=== PATIENT | female | born 1935 | race Caucasian/White ===

== ENCOUNTER → 2017-10-24 | Outpatient (CLI) | payer MEDICARE, BC ==
[2017-10-24 13:36] VITALS: BP 151/83; PULSE 70; RESP 14; TEMP 98.2; BMI 27.6
[2017-10-24 15:15] LABS: Basophils # (A) 0.1 k/uL (0-0.2); Basophils % (A) 1 %; Eosinophils # (A) 0.3 k/uL (0-0.7); Eosinophils % (A) 5 %; HCT 42.5 % (34.0-46.0); HGB 14.3 gm/dL (11.4-16.0); Lymphocytes % (A) 32 %; MCH 31.1 pg (25.0-35.0); MCHC 33.6 g/dL (31.0-37.0); MCV 92.6 fL (80.0-100.0); Mean Platelet Volume 7.2; Monocytes # (A) 0.4 k/uL (0-1.0); Monocytes % (A) 6 %; Neutrophils # (A) 3.3 k/uL (1.3-7.7); Neutrophils % (A) 53 %; Platelet Count 180 k/uL (150-450); RBC 4.59 m/uL (3.80-5.40); RDW 13.8 % (11.5-15.5); WBC 6.1 k/uL (3.8-10.6)
[2017-10-24 15:33] LABS: ALT 37 U/L (9-52); AST 34 U/L (14-36); Albumin 4.7 g/dL (3.5-5.0); Alkaline Phosphatase 73 U/L (38-126); Anion Gap 11 mmol/L; Blood Urea Nitrogen 19 mg/dL (7-17); Carbon Dioxide 32 mmol/L (22-30); Chloride 100 mmol/L (98-107); Glucose 96 mg/dL (74-99); Potassium 4.5 mmol/L (3.5-5.1); Sodium 143 mmol/L (137-145); Total Bilirubin 0.8 mg/dL (0.2-1.3); Total Protein 8.1 g/dL (6.3-8.2)
--- NOTE | 2017-10-24 15:34 | P.HPBAR ---
Bariatric H&P - History & Physicial H&P Date: 10/24/17 History & Physicial: Visit/CC: band fill (has gained 20 pounds since April 2017) Patient initial contact: Initial weight: 81.647 kg Initial weight in pounds: 180.00 Height: 5 ft 1 in Initial BMI: 34.0 Last weight: Current weight: 66.179 kg Current weight in pounds: 145.90 Current BMI: 27.6 [place] body weight (based on NIH guidelines): 47.627 kg Excess body weight loss: 45.4% The patient is a 82 year-old F who presents for Bariatric Assessment. Patient presents today for lab band follow up. Patient had her LAP-BAND previously emptied by Dr. [place]. She is requesting a fill of her band. 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 that is being watched so that a stent may be placed when necessary History of Any Multi-Drug Resistant Organisms: None Reported Past Surgical History: Bariatric Surgery, Cholecystectomy, Hernia Repair Additional Past Surgical History / Comment(s): Lap band placed 2010 (year ?) Past Anesthesia/Blood Transfusion Reactions: No Reported Reaction Additional Past Anesthesia/Blood Transfusion Reaction / Comm: No transfusion to date Smoking Status: Never smoker Past Alcohol Use History: None Reported Past Drug Use History: None Reported Surgical - Exam Vital Signs Temp Pulse Resp BP 98.2 F 70 14 151/83 10/24/17 13:11 10/24/17 13:11 10/24/17 13:11 10/24/17 13:11 - General well developed, no distress, moderate distress - Eyes PERRL - ENT normal pinna - Neck no masses - Respiratory normal expansion Results - Labs 10/24/17 14:20 Bariatric Assessment & Plan Plan: Patient LAP-BAND was adjusted. 3 mL added to her LAP-BAND. She will follow-up in 4 weeks. Bariatric Checklist Checklist: Plan: Checklist: EGD: 1. Hiatal hernia: 2. H. Pylori: HgbA1c: Vitamin D: Smoking: Never smoker Primary care physician referral: Rashard Denny) Psychiatry clearance: Cardiology clearance: Sleep study: Diet journal: VTE risk score: VTE risk level: Rehab needs at discharge:
[2017-10-25 02:09] LABS: Iron Saturation 31.46 (12.00-45.00)
[2017-10-25 02:19] LABS: Vitamin D 25 Hydroxy 18.2 ng/mL (30.0-100.0)
[2017-10-25 02:30] LABS: Folate, Serum 12.2 ng/mL
== END | disposition home or self-care (01) ==
LOC: BARWHC3 12:24
PROVIDERS: ATTEND Surgery
DX: Z48.815 Encounter for surgical aftercare following surgery on the digestive system (principal); E66.01 Morbid (severe) obesity due to excess calories; E44.0 Moderate protein-calorie malnutrition; E55.9 Vitamin D deficiency, unspecified; Z98.84 Bariatric surgery status; Z68.27 Body mass index [BMI] 27.0-27.9, adult
CPT/HCPCS: 84134; 80053; 82746; 83540; 83550; 84443; 85025; 82306; 93005; G0463; 99202

== ENCOUNTER → 2018-07-24 | Outpatient (CLI) | payer MEDICARE, BC ==
[2018-07-24 16:42] LABS: Basophils # (A) 0.1 k/uL (0-0.2); Basophils % (A) 1 %; Eosinophils # (A) 0.2 k/uL (0-0.7); Eosinophils % (A) 4 %; HCT 40.4 % (34.0-46.0); HGB 13.3 gm/dL (11.4-16.0); Lymphocytes # (A) 1.9 k/uL (1.0-4.8); Lymphocytes % (A) 31 %; MCH 29.8 pg (25.0-35.0); MCHC 32.8 g/dL (31.0-37.0); MCV 90.7 fL (80.0-100.0); Mean Platelet Volume 7.2; Monocytes # (A) 0.5 k/uL (0-1.0); Monocytes % (A) 8 %; Neutrophils # (A) 3.1 k/uL (1.3-7.7); Neutrophils % (A) 52 %; Platelet Count 195 k/uL (150-450); RBC 4.45 m/uL (3.80-5.40); RDW 12.7 % (11.5-15.5)
[2018-07-24 23:14] LABS: Albumin 4.5 g/dL (3.80-4.90); Albumin/Globulin Ratio 1.8 (1.60-3.17); Calcium 9.6 mg/dL (8.7-10.3); Globulin 2.5 g/dL (1.6-3.3); Potassium 4.6 mmol/L (3.5-5.5); Total Bilirubin 0.7 mg/dL (0.2-1.2)
== END | disposition home or self-care (01) ==
LOC: LABWHC1 15:33
PROVIDERS: ATTEND Surgery
DX: Z01.812 Encounter for preprocedural laboratory examination (principal)
CPT/HCPCS: 36415; 80053; 85025

== ENCOUNTER → 2018-07-24 | Outpatient (CLI) | payer MEDICARE, BC ==
[2018-07-24 16:25] VITALS: BP 212/111; PULSE 70; TEMP 98.2; BMI 29.2
--- NOTE | 2018-07-28 11:30 | P.HPBAR ---
Bariatric H&P - History & Physicial H&P Date: 07/24/18 History & Physicial: Visit/CC: lap band follow up Patient initial contact: Initial weight: 81.647 kg Initial weight in pounds: 180.00 Height: 5 ft 1 in Initial BMI: 34.0 Last weight: Current weight: 70.307 kg Current weight in pounds: 155.00 Current BMI: 29.2 [place] body weight (based on NIH guidelines): 47.627 kg Excess body weight loss: 33.3% The patient is a 83 year-old F who presents for Bariatric Assessment. Patient presents today for her LAP-BAND follow-up. Patient has gained weight. She has lost her restriction. 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 that is being watched so that a stent may be placed when necessary History of Any Multi-Drug Resistant Organisms: None Reported Past Surgical History: Bariatric Surgery, Cardiac Valve Replacement, Cholecystectomy, Hernia Repair Additional Past Surgical History / Comment(s): Lap band placed 2010 (year ?) Past Anesthesia/Blood Transfusion Reactions: No Reported Reaction Additional Past Anesthesia/Blood Transfusion Reaction / Comm: No transfusion to date Smoking Status: Never smoker Past Alcohol Use History: None Reported Past Drug Use History: None Reported Surgical - Exam Vital Signs Temp Pulse BP 98.2 F 70 212/111 07/24/18 16:20 07/24/18 16:20 07/24/18 16:20 - General well developed, well nourished, no distress - Eyes PERRL - ENT normal pinna - Neck no masses - Respiratory normal expansion - Abdomen Abdomen: soft, non tender Bariatric Assessment & Plan Plan: Patient LAP-BAND port was adjusted. She appears to have a broken LAP-BAND port. Patient was scheduled for laparoscopic replacement of LAP-BAND port Bariatric Checklist Checklist: Plan: Checklist: EGD: 1. Hiatal hernia: 2. H. Pylori: HgbA1c: Vitamin D: Smoking: Never smoker Primary care physician referral: Rashard Denny) Psychiatry clearance: Cardiology clearance: Sleep study: Diet journal: VTE risk score: VTE risk level: Rehab needs at discharge:
== END | disposition home or self-care (01) ==
LOC: BARWHC3 13:31
PROVIDERS: ATTEND Surgery
DX: Z46.51 Encounter for fitting and adjustment of gastric lap band (principal)
CPT/HCPCS: 99211

== ENCOUNTER 2018-08-14 06:54 | Day surgery (SDC) | payer MEDICARE, BC ==
[2018-08-09 12:14] VITALS: BMI 30.2
[~2018-08-14 06:54] MED LIST: DEXAMETHASONE SOD PHOSPHATE 10 MG/ML 1 ML VIAL IV ONE; HYDROmorphone 0.5 MG/0.5 ML SYRINGE IVP PRN; LACTATED RINGERS 1,000 ML IV SCH; LIDOCAINE 1% 20 ML VIAL (10MG/ML) FOR IV START INTRADERMA PRN; ONDANSETRON 4 MG/2 ML VIAL IVP ONE; SCOPOLAMINE 1.5MG/72HR PATCH TRANSDERM ONE; ceFAZolin IN SWFI 2 GM/20 ML SYRINGE IVP ONE
[2018-08-14 07:20] VITALS: RESP 16
[2018-08-14] MEDS ORDERED: SODIUM CHLORIDE 4MEQ/ML 30 ML VIAL IV ONE (08:58)
[2018-08-14] MEDS ORDERED: NEOSTIGMINE 1 MG/ML 10 ML VIAL ONE (08:58)
[2018-08-14] MEDS ORDERED: ROCURONIUM BROMIDE 10 MG/ML 10 ML VIAL IV ONE (08:58)
[2018-08-14] MEDS ORDERED: fentaNYL (PF) 50 MCG/ML 2 ML AMP ONE (08:58)
[2018-08-14] MEDS ORDERED: PROPOFOL 10 MG/ML 20 ML VIAL IV ONE (08:58)
[2018-08-14] MEDS ORDERED: LIDOCAINE 1% INJ 10MG/ML (20 ML MDV) ONE (08:58)
[2018-08-14] MEDS ORDERED: SUCCINYLCHOLINE CHLORIDE 100 MG/5 ML SYR IV ONE (08:58)
[2018-08-14] MEDS ORDERED: HEPARIN SODIUM,PORCINE 5,000 UNIT/ML 1 ML VIAL SQ ONE (09:00)
--- NOTE | 2018-08-14 09:04 | P.GSHP ---
History of Present Illness H&P Date: 08/14/18 Chief Complaint: LAP-BAND port malfunction This is an 83-year-old female who presents today for LAP-BAND port placement. Patient was recently found to have a broken LAP-BAND port. She presents today for laparoscopic replacement. Past Medical History Past Medical History: Hypertension Additional Past Medical History / Comment(s): "Have some blockage in right carotid artery that is being watched so that a stent may be placed when necessary." Joint pain. History of Any Multi-Drug Resistant Organisms: None Reported Past Surgical History: Bariatric Surgery, Cardiac Valve Replacement, Cholecystectomy, Hernia Repair Additional Past Surgical History / Comment(s): Lap band. AORTIC Valve replacement 12/03. Past Anesthesia/Blood Transfusion Reactions: No Reported Reaction Additional Past Anesthesia/Blood Transfusion Reaction / Comment(s): No transfusion to date. Past Psychological History: No Psychological Hx Reported Smoking Status: Never smoker Past Alcohol Use History: None Reported Past Drug Use History: None Reported - Past Family History Mother Family Medical History: Cancer Additional Family Medical History / Comment(s): Breast cancer. Sister(s) Family Medical History: Cancer Medications and Allergies Home Medications Medication Instructions Recorded Confirmed Type Aspirin [Adult Low Dose Aspirin EC] 81 mg PO QAM 10/24/17 08/14/18 History Ferrous Sulfate [Iron (65 MG 325 mg PO DIRECTED PRN 10/24/17 08/14/18 History Elemental)] Atorvastatin [Lipitor] 10 mg PO QAM 07/26/18 08/14/18 History Bumetanide [BUMEX] 1 mg PO DIRECTED PRN 07/26/18 08/14/18 History Magnesium 250 mg PO DIRECTED PRN 07/26/18 08/14/18 History Potassium Chloride 10 meq PO DIRECTED PRN 07/26/18 08/14/18 History Lisinopril [Zestril] 10 mg PO QAM 08/09/18 08/14/18 History Allergies Allergy/AdvReac Type Severity Reaction Status Date / Time No Known Allergies Allergy Verified 08/09/18 11:35 Surgical - Exam Vital Signs Temp Pulse Resp BP Pulse Ox 98.2 F 68 16 191/92 94 L 08/14/18 07:09 08/14/18 07:09 08/14/18 07:09 08/14/18 07:09 08/14/18 07:09 - General well developed, well nourished, no distress - Eyes PERRL - ENT normal pinna - Neck no masses - Respiratory normal expansion - Cardiovascular Rhythm: regular - Abdomen Abdomen: soft, non tender Results - Labs 08/14/18 07:30 Diabetes panel 08/14/18 Range/Units 07:30 Potassium 4.2 (3.5-5.1) mmol/L Pituitary panel 08/14/18 Range/Units 07:30 Potassium 4.2 (3.5-5.1) mmol/L Adrenal panel 08/14/18 Range/Units 07:30 Potassium 4.2 (3.5-5.1) mmol/L Assessment and Plan Assessment: LAP-BAND port malfunction. We'll perform laparoscopic replacement.
[2018-08-14] MEDS ORDERED: BUPIVACAINE (PF) 0.5% 30 ML VIAL SQ ONE (09:22)
[2018-08-14] MEDS ORDERED: LACTATED RINGERS 1,000 ML IV ONE (09:30)
--- NOTE | 2018-08-14 10:12 | P.OP ---
Date of Procedure: 08/14/18 Preoperative Diagnosis: LAP-BAND port malfunction Postoperative Diagnosis: LAP-BAND port bowel function Procedure(s) Performed: Laparoscopic replacement of LAP-BAND port Anesthesia: GWYN Surgeon: Enio Starkey Estimated Blood Loss (ml): 10 Pathology: none sent Condition: stable Disposition: PACU Description of Procedure: The patient's placed on the operative table in the supine position. She received IV and then general anesthesia. Her abdomen was prepped and draped usual sterile fashion. The skin incision sites were anesthetized 1% local Xylocaine. Incision was made at the LAP-BAND port site. Using electrocautery the LAP-BAND port was dissected free from some taste tissues. The LAP-BAND port was biopsied the wound. There appeared to be rubbing on the Tube which caused the failure of the port. The PEG tube was then cut. And then using a 5 mm optical trocar under direct visualization the Cavity is entered. The abdomen was insufflated. After adequate insufflation the laparoscope was placed the cavity. Next a suitable spot on the right anterior abdominal wall was found and a 10 mm trochars placed into the. Cavity. Another 5 mm trochars placed the left lower quadrant. The connecting tube was then brought up from the pelvis. On examination of the left groin there was a left inguinal hernia. This was photographed. The connecting tube was then brought up in the 10 mm trocar site. The trochars withdrawn. The new port was attached to the Tube and then secured to the fascia using 0 Nurolon suture. The LAP-BAND port was flushed. 2 mL of left in the port. The skin was then closed with interrupted 3-0 Monocryl suture. The other ports removed and the skin was closed interrupted 3-0 Monocryl suture. Sterile dressings applied. Patient top she will was sent to recovery in stable condition.
[2018-08-14 10:18] VITALS: TEMP 97.2
[2018-08-14 11:20] VITALS: BP 176/82; PULSE 57
== END 2018-08-14 11:42 | disposition home or self-care (01) ==
LOC: OR 06:54
PROVIDERS: ATTEND Surgery
DX: T85.518A Breakdown (mechanical) of other gastrointestinal prosthetic devices, implants and grafts, initial encounter (principal); I10 Essential (primary) hypertension; I35.0 Nonrheumatic aortic (valve) stenosis; I65.21 Occlusion and stenosis of right carotid artery; M81.0 Age-related osteoporosis without current pathological fracture; I25.10 Atherosclerotic heart disease of native coronary artery without angina pectoris; E78.5 Hyperlipidemia, unspecified; Z95.2 Presence of prosthetic heart valve; Z90.49 Acquired absence of other specified parts of digestive tract; Z80.3 Family history of malignant neoplasm of breast; Z79.82 Long term (current) use of aspirin; Z79.899 Other long term (current) drug therapy
CPT/HCPCS: 84132; 43888; C1751; J1644; J1100; J2710; J2405; J2001; J3010; J0330; J2704; J0690

== ENCOUNTER → 2018-08-28 | Outpatient (CLI) | payer MEDICARE, BC ==
[2018-08-28 14:21] VITALS: BP 185/103; PULSE 90; RESP 16; TEMP 98.1; BMI 29.5
--- NOTE | 2018-08-28 14:41 | P.HPBAR ---
Bariatric H&P - History & Physicial H&P Date: 08/28/18 History & Physicial: Visit/CC: Band Adj Patient initial contact: Initial weight: 81.647 kg Initial weight in pounds: 180.00 Height: 5 ft 1 in Initial BMI: 34.0 Last weight: Current weight: 70.76 kg Current weight in pounds: 156.00 Current BMI: 29.5 [place] body weight (based on NIH guidelines): 47.627 kg Excess body weight loss: 32.0% The patient is a 82 year-old F who presents for Bariatric Assessment. She presents today for LAP-BAND adjustment. She had her LAP-BAND port replaced 2 weeks ago. Patient's complaints of lumps at her LAP-BAND port site and the old port site. Past Medical History Past Medical History: Hypertension Additional Past Medical History / Comment(s): "Have some blockage in right carotid artery that is being watched so that a stent may be placed when necessary." Joint pain. History of Any Multi-Drug Resistant Organisms: None Reported Past Surgical History: Bariatric Surgery, Cardiac Valve Replacement, Cholecystectomy, Hernia Repair Additional Past Surgical History / Comment(s): Lap band. AORTIC Valve replacement 12/03. Past Anesthesia/Blood Transfusion Reactions: No Reported Reaction Additional Past Anesthesia/Blood Transfusion Reaction / Comm: No transfusion to date. Past Psychological History: No Psychological Hx Reported Smoking Status: Never smoker Past Alcohol Use History: None Reported Past Drug Use History: None Reported - Past Family History Mother Family Medical History: Cancer Additional Family Medical History / Comment(s): Breast cancer. Sister(s) Family Medical History: Cancer Surgical - Exam Vital Signs Temp Pulse Resp BP 98.1 F 90 16 185/103 08/28/18 13:56 08/28/18 13:56 08/28/18 13:56 08/28/18 13:56 - General well developed, well nourished, no distress - Eyes PERRL - ENT normal pinna, normal nares - Abdomen Abdomen: soft, non tender Bariatric Assessment & Plan Plan: Patient's lap band was adjusted. She had 2 mL added to her band. Patient had a seroma at her port site. 10 mL of fluid was aspirated. Patient will follow-up in 2 weeks for recheck Bariatric Checklist Checklist: Plan: Checklist: EGD: 1. Hiatal hernia: 2. H. Pylori: HgbA1c: Vitamin D: Smoking: Never smoker Primary care physician referral: Rashard ChJolo) Psychiatry clearance: Cardiology clearance: Sleep study: Diet journal: VTE risk score: VTE risk level: Rehab needs at discharge:
== END | disposition home or self-care (01) ==
LOC: BARWHC3 13:28
PROVIDERS: ATTEND Surgery
DX: Z46.51 Encounter for fitting and adjustment of gastric lap band (principal); K95.09 Other complications of gastric band procedure; I25.10 Atherosclerotic heart disease of native coronary artery without angina pectoris; I10 Essential (primary) hypertension; Z98.84 Bariatric surgery status; Z90.49 Acquired absence of other specified parts of digestive tract; Z95.5 Presence of coronary angioplasty implant and graft
CPT/HCPCS: 99211

== ENCOUNTER → 2018-10-16 | Outpatient (CLI) | payer MEDICARE, BC ==
[2018-10-16 13:48] VITALS: BP 215/67; PULSE 67; RESP 16; TEMP 98.4; BMI 29.2
--- NOTE | 2018-11-03 13:48 | P.HPBAR ---
Bariatric H&P - History & Physicial H&P Date: 11/03/18 History & Physicial: Visit/CC: Patient initial contact: Initial weight: 81.647 kg Initial weight in pounds: 180.00 Height: 5 ft 1 in Initial BMI: 34.0 Last weight: Current weight: 70.307 kg Current weight in pounds: 155.00 Current BMI: 29.2 [place] body weight (based on NIH guidelines): 47.627 kg Excess body weight loss: 33.3% The patient is a 82 year-old F who presents for Bariatric Assessment. She presents today for LAP-BAND follow-up. She's not been seen in several years. Past Medical History Past Medical History: Hypertension Additional Past Medical History / Comment(s): "Have some blockage in right carotid artery that is being watched so that a stent may be placed when necessary." Joint pain. History of Any Multi-Drug Resistant Organisms: None Reported Past Surgical History: Bariatric Surgery, Cardiac Valve Replacement, Cholecystectomy, Hernia Repair Additional Past Surgical History / Comment(s): Lap band. AORTIC Valve replacement 12/03. Past Anesthesia/Blood Transfusion Reactions: No Reported Reaction Additional Past Anesthesia/Blood Transfusion Reaction / Comm: No transfusion to date. Past Psychological History: No Psychological Hx Reported Smoking Status: Never smoker Past Alcohol Use History: None Reported Past Drug Use History: None Reported - Past Family History Mother Family Medical History: Cancer Additional Family Medical History / Comment(s): Breast cancer. Sister(s) Family Medical History: Cancer Surgical - Exam Vital Signs Temp Pulse Resp BP 98.4 F 67 16 215/67 10/16/18 13:42 10/16/18 13:42 10/16/18 13:42 10/16/18 13:42 - General well developed, well nourished, no distress - Eyes PERRL - Neck no masses, no bruits - Respiratory normal expansion - Cardiovascular Rhythm: regular - Abdomen Abdomen: soft, non tender Bariatric Assessment & Plan Plan: Patient's lap band was adjusted. She had 0.5 mL added to the band. She currently has 3 mL in the band. She'll follow-up in 4 weeks. Bariatric Checklist Checklist: Plan: Checklist: EGD: 1. Hiatal hernia: 2. H. Pylori: HgbA1c: Vitamin D: Smoking: Never smoker Primary care physician referral: Rashard ChNuevo) Psychiatry clearance: Cardiology clearance: Sleep study: Diet journal: VTE risk score: VTE risk level: Rehab needs at discharge:
== END | disposition home or self-care (01) ==
LOC: BARWHC3 12:46
PROVIDERS: ATTEND Surgery
DX: Z46.51 Encounter for fitting and adjustment of gastric lap band (principal)
CPT/HCPCS: 99212